=== PATIENT | female | born 1985 | race Caucasian/White ===

== ENCOUNTER 2022-11-12 11:49 | Outpatient (CLI) | payer OTHER, SELFPAY ==
[2022-11-13 07:38] LABS: Strep A DNA Probe* DETECTED (Not Detectd)
== END 2022-11-12 11:50 | disposition home or self-care (01) ==
LOC: KYNREF 11:49
PROVIDERS: PCP Obstetrics & Gynecology; Visit Provider Nurse Practitioner Family
DX: J02.0 Streptococcal pharyngitis (principal)
CPT/HCPCS: 87651

== ENCOUNTER 2022-12-06 09:00 | Outpatient (CLI) | payer OTHER, SELFPAY | END 2022-12-06 09:01 | disposition home or self-care (01) | PROVIDERS: PCP Obstetrics & Gynecology; Visit Provider Family Medicine | DX: Z01.419 Encounter for gynecological examination (general) (routine) without abnormal findings (principal); E55.9 Vitamin D deficiency, unspecified; R53.83 Other fatigue; E66.1 Drug-induced obesity; F32.A Depression, unspecified; Z86.32 Personal history of gestational diabetes; Z13.6 Encounter for screening for cardiovascular disorders | CPT/HCPCS: 80053; 80061; 82306; 82607; 82728; 84443 ==

== ENCOUNTER 2024-01-12 20:12 | Outpatient (CLI) | payer OTHER, SELFPAY ==
--- OUTSIDE RECORDS SUMMARY | 2024-01-12 20:14 | XMS_ITS | Clinical Summary ---
Author Name Unknown Organization [place] Address [facility] [place] [address] Care Team Providers Care Vacuum Closing Machine Operator Name Role Phone Unavailable Primary Care Provider Unavailabl e Allergies No known active allergies Medications Medication Sig Dispensed Refills Start Date End Date Status loratadine (CLARITIN) 10 MG tablet Take 10 mg by mouth daily Active Vit-Fe Fumarate-FA ( VITAMIN PO) Active buPROPion (WELLBUTRIN XL) 150 MG 24 hr tabletIndications:M ajor depressive disorder, single episode, moderate (H),Generalized anxiety disorder Take 1 tablet (150 mg) by mouth every morning 90 tablet 3 05/01/2018 Active norethin-eth estrad biphasic (NECON /, 28,) 0.5-35/1-35 MG-MCG TABSIndications:Uns pecified contraceptive management Take 1 tablet by mouth daily 84 tablet 2 04/29/2014 05/02/2014 Discontinued (Reorder (No AVS)) Active Problems Problem Noted Date Diagnosed Date , unspecified gestational age [age] Cervical high risk HPV (human papillomavirus) te st positive 06/12/2017 Overview: 06/12/17 NIL, +HR HPV, not 16/18. Plan 1 yr co-test 10/27/18 Patient is lost to pap tracking follow-up. CARDIOVASCULAR SCREENING; LDL GOAL LESS THAN 160 03/22/2015 Obesity 03/22/2015 Vitamin D deficiency 03/28/2014 Overview: Problem list name updated by automated process. Provider to review Migraine 03/14/2014 Overview: Problem list name updated by automated process. Provider to review Generalized anxiety disorder 03/14/2014 Major depressive disorder, single episode, moder ate 03/14/2014 Immunizations Name Administration Dates Next Due TDAP (Adacel,Boostrix) 02/26/2013 Family History Medical History Relation Comments Cancer Father melanoma Hypertension Father Cancer Mother melanoma Diabetes Mother Relation Status Comments Brother Alive Father Alive Maternal Grandfather Alive Maternal Grandmother Mother Alive Paternal Grandfather Alive Paternal Grandmother Social History Tobacco Use Types Packs/Day Years Used Date Smoking Tobacco: Never Smokeless Tobacco: Never Alcohol Use Standard Drinks/Week Comments Yes 0 (1 standard drink = 0.6 oz pur e alcohol) rarely PHQ-2 Answer Date Recorded PHQ-2 Score 4 10/07/2018 Sex and Gender Information Value Date Recorded Sex Assigned at Not on file Gender Identity Not on file Sexual Orientation Not on file Last Filed Vital Signs Vital Sign Reading Time Taken Comments Blood Pressure 120/76 05/01/2018 4:27 PM CDT Pulse 86 05/01/2018 4:27 PM CDT Temperature 36.7 ??C (98.1 ??F) 05/01/2018 4:27 PM CD T Respiratory Rate 12 05/01/2018 4:27 PM CDT Oxygen Saturation 99% 05/01/2018 4:27 PM CDT Inhaled Oxygen Concentration - - Weight 126.1 kg (278 lb) 05/01/2018 4:27 PM CDT Height 177.8 cm (5' 10) 12/18/2017 6:26 PM CDT Body Mass Index 39.89 12/18/2017 6:26 PM CDT Plan of Treatment Not on file
--- OUTSIDE RECORDS SUMMARY | 2024-01-12 20:14 | XMS_ITS | Referral Summary ---
Author Name Unknown Organization [place] Address [facility] [place] [address] Care Team Providers Care Night Custodian Name Role Phone Unavailable Primary Care Provider [...] Administration Dates Next Due TDAP (Adacel,Boostrix) 02/26/2013 Social History Tobacco Use Types Packs/Day Years [...]
--- OUTSIDE RECORDS SUMMARY | 2024-01-12 20:14 | XMS_ITS | Encounter Summary ---
Author Name Unknown Organization [place] Address [address] [place] [id number] Care Team Providers Care Hi Ranger Operator Name Role Phone Maureen Ruelas APRN, CNP Primary Care Provi camila Maureen Ruelas APRN, CNP Unavailable + [phone] Maureen Ruelas APRN, CNP Unavailable [phone] Encounter Details Date Type Department Care Team (Latest Contact Info) Description 12/12/2016 Historic Results Social History Tobacco Use Types Packs/Day Years Used Date Smoking Tobacco: Never Smokeless Tobacco: Never Alcohol Use Standard Drinks/Week Comments Yes 0 (1 standard drink = 0.6 oz pur e alcohol) rarely Sex and Gender Information Value Date Recorded Sex Assigned at Not on file Gender Identity Not on file Sexual Orientation Not on file documented as of this encounter Plan of Treatment Not on file documented as of this encounter Visit Diagnoses Not on filedocumented in this encounter Additional Health Concerns Assessment Noted Time PHQ-9 Depression Total Score: 15 12/13/ 017 7:13 AM CDT documented as of this encounter Care Teams Hi Ranger Operator Relationship Specialty Start Date End Date Maureen Ruelas APRN CNP [id number] [place] [address] PCP - General Nurse Practitioner 03/22/15 09/04/23 Maureen Ruelas APRN CNP [id number] [place] [address] PCP - Assigned PCP 03/19/15 12/01/18 Maureen Ruelas APRN [facility] [address] [place] [address] Assigned PCP 03/19/15 05/05/21 documented as of this encounter
--- NOTE | 2024-01-21 12:58 | W.PM.SLEEP ---
Sleep Study Details Details Interpreting Provider: Eron Date of Sleep Study: 01/12/24 Sleep Study Details: STUDY TYPE:? Hospital-based attended ? BMI:? 46.8 ORDERING PROVIDER:? Saray INDICATION:? Concerns about sleep apnea ? SLEEP SUMMARY:? Total sleep time 392.5 minutes RESPIRATORY SUMMARY:? Low oxygen 79, 6.7 minutes oxygen between 80 and 88% AHI 17.9, REM AHI 35.5-note that the entire study was done in the nonsupine position PERIODIC LIMB MOVEMENTS OF SLEEP:? Index 33.3, index with arousal 0.2 CARDIAC:? Awake 70, asleep 70. No arrhythmias noted IMPRESSION:? Moderate obstructive sleep apnea with REM dependency. Note that the entire study was done in the nonsupine position RECOMMENDATION: Treatment options include weight loss, CPAP, dental appliance and/or airway expansion surgery.
== END 2024-01-12 20:13 | disposition home or self-care (01) ==
LOC: SLEEP 20:12
PROVIDERS: PCP Family Medicine; Visit Provider Otolaryngology
DX: G47.33 Obstructive sleep apnea (adult) (pediatric) (principal)
CPT/HCPCS: 95810

== ENCOUNTER 2024-10-01 10:03 | Outpatient (CLI) | payer OTHER, SELFPAY | END 2024-10-01 10:04 | disposition home or self-care (01) | LOC: NFLDREF 10:04 | PROVIDERS: PCP Family Medicine; Visit Provider Registered Nurse | DX: N39.3 Stress incontinence (female) (male) (principal) | CPT/HCPCS: 87086 ==

== ENCOUNTER 2024-12-17 08:25 | Outpatient (CLI) | payer OTHER, SELFPAY | END 2024-12-17 08:26 | disposition home or self-care (01) | LOC: NFLDREF 12-19 00:03 | PROVIDERS: PCP Family Medicine; Referring Provider Family Medicine; Visit Provider Family Medicine | DX: D64.9 Anemia, unspecified (principal); Z86.32 Personal history of gestational diabetes; Z13.6 Encounter for screening for cardiovascular disorders | CPT/HCPCS: 80053; 80061 ==